=== PATIENT | female | born 1950 | race Caucasian/White ===

== ENCOUNTER 2019-02-24 16:05 | Emergency (ER) | payer MEDICARE ==
--- NOTE | 2019-02-24 17:09 | RAD ---
FRadiograph lumbar spine 3 views: 02/24/2019 HISTORY: 69-year-old female with traumatic low back pain after fall COMPARISON: 07/16/2006 FINDINGS: There are 5 lumbar-type vertebrae. There is exaggerated lordosis, similar to study. The previously de monstrated pedicle screws bilaterally at L4, bilaterally at L5, and on the left at S1, have been shade shannan. The right S1 pedicle screw with distal 4 cm remains embedded in the bone at S1. Again noted are the grade 2 anterolisthesis of L4 on L5, and grade 1 anterolisthesis of L5 on S1. Severe disc space n arrowing at L4-5 and L5-S1. Metallic markers for interbody cage at the L4-5 and L5-S1 disc spaces. La minectomy defects at L4-5 and L5-S1. Vertebral body heights are maintained in the lumbar spine proper .. There is an old mild compression fracture deformity of T12. IMPRESSION: 1. No evidence of acute compression fracture. 2. Severe degenerative disc disease at L4-5 and L5-S1. 3. Grade 2 spondylolisthesis at L4-5 and grade 1 spondylolisthesis at L5-S1. 4. Interval removal of pedicle screws from L4, L5, and S1, except for an embedded focus in the pedicl e screw on the right at S1. 5. Status post laminectomies at lower levels. 6. Old compression fracture of T12.
--- NOTE | 2019-02-24 17:10 | RAD ---
FRadiograph pelvis one view: 02/16/2019 HISTORY: 69-year-old female with acute traumatic right hip pain after fall FINDINGS: Intramedullary nail in the left femoral shaft entering through greater trochanter. Pelvic rim appears to be intact. No acute fracture identified. No dislocation of right hip. 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 IMPRESSION: No acute fracture identified.
== END 2019-02-24 17:22 | disposition home or self-care (01) ==
LOC: MADERS 16:05
DX: M54.5 Low back pain (principal); G47.00 Insomnia, unspecified; M19.90 Unspecified osteoarthritis, unspecified site; E78.5 Hyperlipidemia, unspecified; F41.9 Anxiety disorder, unspecified; F32.9 Major depressive disorder, single episode, unspecified; Z79.82 Long term (current) use of aspirin; Z79.891 Long term (current) use of opiate analgesic; Z79.899 Other long term (current) drug therapy; W18.30XA Fall on same level, unspecified, initial encounter
CPT/HCPCS: 72100; 72170

== ENCOUNTER 2025-09-28 14:54 | Outpatient (CLI) | payer MEDICARE | END 2025-09-28 14:55 | disposition home or self-care (01) | LOC: MADRAD 14:54 | PROVIDERS: ATTEND Orthopaedic Surgery | DX: M46.1 Sacroiliitis, not elsewhere classified (principal); M43.16 Spondylolisthesis, lumbar region; Z98.890 Other specified postprocedural states | CPT/HCPCS: 72190 ==